=== PATIENT | female | born 1970 | race Caucasian/White ===

== ENCOUNTER 2020-04-12 11:08 | Emergency (ER) | payer SELFPAY ==
[~2020-04-12] VITALS: Ht 165.1 cm; Wt 70.3 kg
[2020-04-12] MEDS ORDERED: LEXAPRO10 MG PO (11:27)
[2020-04-12] MEDS ORDERED: HYDROCHLOROTH12.5 M1 PO (11:27)
== END 2020-04-12 12:17 | disposition home or self-care (01) ==
LOC: ED 11:08
DX: F41.9 Anxiety disorder, unspecified (principal); F43.0 Acute stress reaction; I10 Essential (primary) hypertension; Z88.5 Allergy status to narcotic agent; Z79.899 Other long term (current) drug therapy
CPT/HCPCS: 99283